=== PATIENT | male | born 1950 | race Caucasian/White ===

== ENCOUNTER 2020-07-12 11:09 | Outpatient (REF) | payer MEDICARE, OTHER, SELFPAY ==
[2020-07-12 14:10] LABS: Estimated Average Glucose 143 mg/dL; Hemoglobin A1c % 6.6 %
[2020-07-12 14:42] LABS: Alanine Aminotransferase 10 U/L (0-40); Alkaline Phosphatase 102 U/L (39-117); Anion Gap 18 (12-20); Aspartate Amino Transferase 11 U/L (5-37); Bilirubin Direct 0.2 mg/dL (0.0-0.5); Bilirubin Total 0.4 mg/dL (0.0-1.0); Blood Urea Nitrogen 13 mg/dL (9-16); Calcium 8.7 mg/dL (8.4-10.2); Carbon Dioxide 31 mmol/L (22-29); Chloride 100 mmol/L (96-108); Cholesterol 152 mg/dL; Estimated Glomerular Filt Rate > 60; Glucose Random 94 mg/dL (60-115); HDL Cholesterol 28 mg/dL; LDL Cholesterol Calculated 74 mg/dl; Potassium 4.8 mmol/l (3.3-5.1); Sodium 144 mmol/L (135-145); Total Protein 6.7 g/dL (6.5-8.0); Triglycerides 254 mg/dL
== END 2020-07-12 11:10 | disposition home or self-care (01) ==
LOC: HO.HMGCLDS 11:09
PROVIDERS: PCP Student in an Organized Health Care Education/Training Program; Visit Provider Student in an Organized Health Care Education/Training Program
DX: E11.9 Type 2 diabetes mellitus without complications (principal); E78.00 Pure hypercholesterolemia, unspecified; I10 Essential (primary) hypertension
CPT/HCPCS: 80048; 80061; 80076; 83036

== ENCOUNTER 2020-07-16 16:49 | Outpatient (REF) | payer MEDICARE, OTHER, SELFPAY ==
[2020-07-16 17:27] LABS: Creatinine Urine 171.99 mg/dL; Microalbum/Creatinine Ratio Ur 5.8 ug/mg cr
== END 2020-07-16 16:50 | disposition home or self-care (01) ==
LOC: HO.LNP 16:49
PROVIDERS: Visit Provider Student in an Organized Health Care Education/Training Program
DX: E11.9 Type 2 diabetes mellitus without complications (principal)
CPT/HCPCS: 82043

== ENCOUNTER → 2020-09-11 12:55 | Outpatient (BNVA) | payer MEDICARE, OTHER, SELFPAY | PROVIDERS: PCP Student in an Organized Health Care Education/Training Program; Visit Provider Urology | DX: Z13.89 Encounter for screening for other disorder (principal) | CPT/HCPCS: 99212 ==